=== PATIENT | male | born 1975 | race Caucasian/White ===

== ENCOUNTER 2020-07-25 08:42 | Outpatient (CLI) | payer BC ==
[2020-07-25] MEDS ORDERED: IBUP200C8 PO (09:15)
== END 2020-07-25 23:59 | disposition home or self-care (01) ==
LOC: STAR 08:42
PROVIDERS: ATTEND Orthopaedic Surgery
DX: Z02.9 Encounter for administrative examinations, unspecified (principal)

== ENCOUNTER → 2020-07-27 | Outpatient (CLI) | payer BC ==
[~2020-07-27] MED LIST: IBUP200C8 PO
== END | disposition home or self-care (01) ==
LOC: STAR 14:39
PROVIDERS: ATTEND Anesthesiology
DX: Z20.828 Contact with and (suspected) exposure to other viral communicable diseases (principal)
CPT/HCPCS: 36415; 87635

== ENCOUNTER 2020-08-02 06:42 | Day surgery (SDC) | payer BC ==
[~2020-08-02] VITALS: Ht 180.3 cm; Wt 97.4 kg
[2020-08-02] MEDS ORDERED: LACTATED RINGERS 1,000 ML IV SCH (06:50)
[2020-08-02] MEDS ORDERED: CHLORHEXIDINE 15 ML UDC MM STA (06:52)
[2020-08-02] MEDS ORDERED: BUPIVACAINE/PF 0.5% ONE (07:26)
[2020-08-02] MEDS ORDERED: ACETAMINOPHEN 500 MG TABLET PO ONE (08:00)
[2020-08-02] MEDS ORDERED: BUPIVACAINE/PF 0.25% ONE (08:02)
[2020-08-02] MEDS ORDERED: EPINEPHRINE TOPICAL SOLN 1 MG/ML, 30ML ONE (08:03)
[2020-08-02] MEDS ORDERED: morphine SULFATE/PF 1 MG/ML, 10ML ONE (08:03)
[2020-08-02] MEDS ORDERED: EPINEPHRINE 1 MG/ML, 1ML ONE (08:03)
[2020-08-02] MEDS ORDERED: LIDOCAINE 1%, 20ML ONE (08:03)
[2020-08-02] MEDS ORDERED: MIDAZOLAM 1 MG/ML, 2ML ONE (08:24)
[2020-08-02] MEDS ORDERED: FENTANYL PF 100 MCG/2ML ONE ×2 (08:24→10:18)
[2020-08-02] MEDS ORDERED: SODIUM CHLORIDE 0.9% PF 10ML ONE (08:59)
[2020-08-02] MEDS ORDERED: LIDOCAINE-MPF 2% ,5ML ONE (08:59)
[2020-08-02] MEDS ORDERED: PROMETHAZINE 25 MG/ML, 1ML IVPush PRN (09:00)
[2020-08-02] MEDS ORDERED: EPHEDRINE 50 MG/ML, 1ML IVPush PRN (09:00)
[2020-08-02] MEDS ORDERED: HYDROmorphone 1 MG/ML, 1ML INJ IVPush PRN (09:00)
[2020-08-02] MEDS ORDERED: LABETALOL 5MG/ML, 20ML IV PRN (09:00)
[2020-08-02] MEDS ORDERED: FENTANYL PF 100 MCG/2ML IV PRN (09:00)
[2020-08-02] MEDS ORDERED: ONDANSETRON 2MG/ML, 2ML IVPush PRN (09:00)
[2020-08-02] MEDS ORDERED: OXYcodone 5 MG/5 ML ORAL.SOL UDC PO PRN (09:00)
[2020-08-02] MEDS ORDERED: MEPERIDINE/PF 25MG/0.5ML IVPush PRN (09:00)
[2020-08-02] MEDS ORDERED: hydrALAzine 20 MG/ML, 1ML IV PRN (09:00)
[2020-08-02] MEDS ORDERED: SUCCINYLCHOLINE 20 MG/ML, 10ML ONE (09:01)
[2020-08-02] MEDS ORDERED: ONDANSETRON 2MG/ML, 2ML ONE (09:01)
[2020-08-02] MEDS ORDERED: DEXAMETHASONE 4 MG/ML, 1ML ONE (09:01)
[2020-08-02] MEDS ORDERED: CEFAZOLIN 1,000 MG ONE (09:01)
[2020-08-02] MEDS ORDERED: PROPOFOL 10 MG/ML, 20ML ONE (09:01)
[2020-08-02] MEDS ORDERED: KETOROLAC 30 MG/1 ML ONE (09:09)
[2020-08-02] MEDS ORDERED: OXYcodone 5 MG/5 ML ORAL.SOL UDC ONE (10:18)
== END 2020-08-02 12:05 | disposition home or self-care (01) ==
LOC: OUT 06:42
PROVIDERS: ATTEND Orthopaedic Surgery
DX: S83.231A Complex tear of medial meniscus, current injury, right knee, initial encounter (principal); Z20.828 Contact with and (suspected) exposure to other viral communicable diseases; M94.261 Chondromalacia, right knee; G89.18 Other acute postprocedural pain; Z79.899 Other long term (current) drug therapy; Z82.49 Family history of ischemic heart disease and other diseases of the circulatory system; Z82.3 Family history of stroke; X50.1XXA Overexertion from prolonged static or awkward postures, initial encounter; Y93.17 Activity, water skiing and wake boarding; Y92.89 Other specified places as the place of occurrence of the external cause; Y99.8 Other external cause status
CPT/HCPCS: 29881; 64447; 87635; J0171; J0330; J0690; J1100; J1885; J2250; J2405; J2704; J3010; J3490; J7120; J2274